=== PATIENT | female | born 1985 | race Caucasian/White ===

== ENCOUNTER 2018-03-06 12:24 | Emergency (ER) | payer OTHER ==
[~2018-03-06 12:24] MED LIST: CYCL5TAB PO; IBUP800T23 PO; NORE1TAB58 PO
[2018-03-06 12:26] VITALS: BP 132/77; PULSE 79; RESP 18; TEMP 98.1; O2SAT 99
--- NOTE | 2018-03-06 13:04 | PD ---
HPI Chief Complaint: Injury Time Seen by Provider: 12:48 Travel History International Travel<30 days: No Contact w/Intl Traveler<30days: No Traveled to known affect area: No History of Present Illness HPI 32-year-old female here with right ankle pain. Patient reports she twisted the ankle while walking near her pool she had a near fall scraping her left knee. Her body did not fall to the ground. She remains semi-standing. She is 29 weeks . She is adamant there was no trauma to the abdomen or head. Her pain is localized to the lateral aspect of the ankle. Reports she can feel the baby moving normally. Denies headache, neck pain, chest pain, shortness of breath, abdominal pain, paresthesia or weakness of the extremity. She has constant, throbbing pain in the right ankle. Worse with weightbearing and range of motion. Slightly relieved with rest. PFSH Past Medical History Medical History: Denies Significant Hx Asthma: Yes (ACTIVITY INDUCED) Diabetes: No Diminished Hearing: No Immunizations Current: Yes Tetanus Vaccination: > 5 Years Influenza Vaccination: No ?: Past Surgical History Surgical History: No Previous Surgery Social History Alcohol Use: No Tobacco Use: No Substance Use: No Allergies-Medications (Allergen,Severity, Reaction): Coded Allergies: No Known Allergies (Verified Adverse Reaction, Unknown, 03/06/18) Reported Meds & Prescriptions Reported Meds & Active Scripts Active No Active Prescriptions or Reported Medications Review of Systems Except as stated in HPI: all other systems reviewed are Neg General / Constitutional: No: Fever Eyes: No: Visual changes HENT: No: Headaches Cardiovascular: No: Chest Pain or Discomfort Respiratory: No: Shortness of Breath Gastrointestinal: No: Abdominal Pain Genitourinary: No: Dysuria Musculoskeletal: Positive: Pain (Right ankle) Skin: No Rash Neurologic: No: Weakness Physical Exam Narrative GENERAL: Alert, well-appearing 32-year-old female. SKIN: Warm and dry. Small abrasion to the left knee. No active bleeding. HEAD: Atraumatic. Normocephalic. EYES: Pupils equal and round. EOMs intact. No injection or drainage. ENT: No nasal bleeding or discharge. Mucous membranes pink and moist. No facial trauma NECK: Supple CARDIOVASCULAR: Regular rate and rhythm. RESPIRATORY: No accessory muscle use. Clear to auscultation. Breath sounds equal bilaterally. GASTROINTESTINAL: Abdomen soft, non-tender. Fundal height appropriate for gestation. No evidence of trauma to the abdomen. MUSCULOSKELETAL: Extremities without clubbing, cyanosis. No obvious deformities. +TTP and mild swelling to the lateral malleolus. Palpable DP pulse. Normal sensation. She can freely wiggle toes. Brisk cap refill. NEUROLOGICAL: Awake and alert. No obvious cranial nerve deficits. Motor grossly within normal limits. Five out of 5 muscle strength in the arms and legs. Normal speech. PSYCHIATRIC: Appropriate mood and affect; insight and judgment normal. Data Data Last Documented VS Vital Signs Date Time Temp Pulse Resp B/P (MAP) Pulse Ox O2 Delivery O2 Flow Rate FiO2 03/06/18 12:33 Room Air 03/06/18 12:26 98.1 79 18 132/77 (95) 99 Orders Orders Ankle, Complete ([id number]) (03/06/18 ) Heart Tones (03/06/18 12:48) MDM Medical Decision Making Medical Screen Exam Complete: Yes Emergency Medical Condition: Yes Differential Diagnosis Ankle sprain versus ankle fracture versus dislocation versus Narrative Course 32-year-old female here with ankle injury after a twisting injury today. She is currently 29 weeks . She denies falling to the ground. She is adamant there was no trauma to the abdomen or head. The extremity is neurovascularly intact. Her abdomen is nontender with no evidence of trauma. heart tones obtained rate of 150. X-ray right ankle: No fracture dislocation. Patient is to follow-up with orthopedic doctor this week Diagnosis Primary Impression: Ankle sprain Qualified Codes: S93.401A - Sprain of unspecified ligament of right ankle, initial encounter Referrals: Scott Rodriguez Jr., MD Orthopedist Additional Instructions: Sai wrap, ankle stirrup, crutches until follow-up with orthopedist Return if you have new or worsening symptoms. Scripts No Active Prescriptions or Reported Meds Disposition: 01 DISCHARGE HOME Condition: Stable KeovalenciaMary Alice RAYOMND Mar 06, 2018 13:04
--- NOTE | 2018-03-06 13:21 | RADRPT ---
EXAM DATE/TIME: 03/06/2018 12:58 [facility] COMPARISON: No previous studies available for comparison. INDICATIONS : Fell twisting ankle MEDICAL HISTORY : None. SURGICAL HISTORY : None. ENCOUNTER: Initial ACUITY: 1 day PAIN SCORE: 9/10 LOCATION: Right ankle TECH NOTE: Pt is 29 weeks , full shield EVELYN Crook MR#[id number] :85 Exam date/desc:Ap ril 2017ANKLE RIGHT COMPLETE (PVA1PDG) FINDINGS: Three view exam was performed of the right ankle. The bony structures are in normal alignment. No e vidence of acute fracture or malalignment. There is soft tissue swelling over lateral malleolus. The ankle mortise is intact. No radiopaque foreign bodies are seen. Bony mineralization is normal. CONCLUSION: Soft tissue swelling over the lateral malleolus without acute fracture or malalignmen tomas Ward MD on March 06, 2018 at 13:18 Board Certified Radiologist. This report was verified electronically.
== END 2018-03-06 13:45 | disposition home or self-care (01) ==
LOC: PHEFT 12:24
DX: S93.401A Sprain of unspecified ligament of right ankle, initial encounter (principal); J45.909 Unspecified asthma, uncomplicated; X50.1XXA Overexertion from prolonged static or awkward postures, initial encounter; Z3A.29 29 weeks gestation of pregnancy
CPT/HCPCS: 73610; 99283